=== PATIENT | male | born 2000 | race Caucasian/White ===

== ENCOUNTER 2021-11-06 04:08 | Emergency (ER) | payer MEDICAID, SELFPAY ==
[2021-11-06 04:13] VITALS: BP 131/97; PULSE 86; RESP 12; TEMP 35.9; O2SAT 98; BMI 25.4
[2021-11-06 04:19] VITALS: O2SAT 96
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
[2021-11-06] MEDS: 0.9% Normal Saline 1,000 ML 999 ML IV (04:39)
[2021-11-06 04:45] LABS: Absolute Neutrophil Count 7.6 X10^3/uL (2.0-7.7); Basophil# 0.05 X10^3/uL; Basophil% 0.4 % (0-1); Eosinophil# 0.09 X10^3/uL; Eosinophils% 0.7 % (0-5); Hematocrit 46.3 % (40-54); Hemoglobin 16.1 g/dL (13.0-16.5); Lymphocyte % 26.2 % (19-41); Mean Corp Hgb Conc 34.8 g/dL (32-36); Mean Corpuscular Hgb 29.7 pg (27.0-32.0); Mean Corpuscular Volume 85.3 fL (80-94); Mean Platelet Vol. 9.4 fl (6.2-12.0); Monocyte# 1.24 X10^3/uL; Monocyte% 10.1 % (0-10); NRBC Flagged by Analyzer 0 % (0-5); Neutrophil # 7.61 X10^3/uL (2.7-7.7); Neutrophil % 62.3 % (47-70); Platelet Count 314 K/mm3 (150-450); RBC Distribution Width CV 12.2 % (11.6-14.6); RBC Distribution Width SD 37.5 fl (35.1-43.9); Red Blood Count 5.43 M/mm3 (4.6-6.2); White Blood Count 12.2 K/mm3 (4.4-11.0)
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
[2021-11-06 04:51] LABS: Bacteria 0 SEEN /hpf (None Seen); Color, Urine Yellow (Yellow); Glucose, Dipstick Normal (Normal); Ketone-Dipstick 5 mg/dl (Negative); Leukocyte Esterase-Dipstick Negative /ul (Negative); Mucous, Urine 0 SEEN /hpf (<or=2+); Nitrite-Dipstick Negative (Negative); Occult Blood-Urine 25 /ul (Negative); Protein-Dipstick 30 mg/dl (Negative); Red Blood Cells-Urine 0 SEEN /hpf (0-5); Specific Gravity, Urine 1.015 (1.002-1.030); Squamous Epithelial Cells - UA 0 SEEN /hpf (0-5); Urine Bilirubin Dipstick Negative (Negative); Urine Clarity Clear (Clear); Urine Urobilinogen Normal (Normal); White Blood Cells 0 SEEN /hpf (0-5)
[2021-11-06 05:08] LABS: ALB/GLOB Ratio 1.3 RATIO (0.9-2.4); AST(SGOT) 79 U/L (15-37); Alanine Aminotransfer ALT/SGPT 54 U/L (16-61); Albumin, Serum 4.5 g/dL (3.2-5.0); Alkaline Phosphatase 141 U/L (45-117); Anion Gap 11 (5-15); BUN 12 mg/dL (7-18); BUN/Creat Ratio 11.5 RATIO (10-20); Calcium,Total 8.2 mg/dL (8.5-10.1); Chloride 108 mmol/L (98-107); Creatinine, Serum 1.04 mg/dL (0.70-1.30); EST Glomerular Filtration Rate 95 mL/min (>60); Est Glom Filt Rate - Afr Amer 115 mL/min (>60); Estimated Creatinine Clearance 115.04 ml/min; Globulin 3.5 g/dL (2.2-4.2); Glucose 91 mg/dL (74-106); Potassium 3.8 mmol/L (3.5-5.1); Sodium Level 142 mmol/L (136-145)
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
[2021-11-06 05:18] LABS: Amphetamine Urine VISTA NEGATIVE (<1000 ng/mL); Barbiturate Urine VISTA NEGATIVE (< 200 ng/mL); Benzodiazepine Urine VISTA NEGATIVE (< 200 ng/mL); Cocaine Urine VISTA NEGATIVE (< 300 ng/mL); Ecstacy Urine VISTA NEGATIVE (< 500 ng/mL); Methadone Urine VISTA NEGATIVE (< 300 ng/mL); PCP Urine VISTA NEGATIVE (< 25 ng/mL); THC Urine VISTA NEGATIVE (< 50 ng/mL); Vista UDS pH Range 4
[2021-11-06 05:58] VITALS: BP 103/57; PULSE 67; RESP 12; O2SAT 98
[2021-11-06 07:00] VITALS: O2SAT 96
[2021-11-06 09:53] VITALS: BP 95/49; PULSE 91; RESP 16; O2SAT 95
[2021-11-06 11:22] VITALS: BP 98/43; PULSE 78; RESP 14
== END 2021-11-06 11:47 | disposition home or self-care (01) ==
PROVIDERS: Emergency Provider Emergency Medicine; Visit Provider Emergency Medicine
DX: S02.2XXA Fracture of nasal bones, initial encounter for closed fracture (principal); F10.129 Alcohol abuse with intoxication, unspecified; Y90.8 Blood alcohol level of 240 mg/100 ml or more; S16.1XXA Strain of muscle, fascia and tendon at neck level, initial encounter; L02.413 Cutaneous abscess of right upper limb; S00.431A Contusion of right ear, initial encounter; Y92.481 Parking lot as the place of occurrence of the external cause; L03.113 Cellulitis of right upper limb; F17.210 Nicotine dependence, cigarettes, uncomplicated
CPT/HCPCS: 10060; 70450; 70486; 71260; 72125; 73130; 74177; 80053; 80307; 81001; 82077; 85025; 96360; 96361; 99282; J7030; Q9967; A4216

== ENCOUNTER 2021-12-04 17:07 | Emergency (ER) | payer MEDICAID, SELFPAY ==
[2021-12-04 17:08] VITALS: BP 117/71; PULSE 115; RESP 16; TEMP 36.6; O2SAT 100; BMI 28.8
--- NOTE | 2021-12-04 17:21 | RAD_ITS ---
STUDY: X-RAY - LEFT HAND REASON FOR EXAM: Male, 21 years old. pain TECHNIQUE: 3 view(s) of the hand. COMPARISON: None. FINDINGS: Normal radiocarpal articulation. Normal distal radioulnar joint. Normal visualized carpal bones. Normal carpal articulations Normal carpometacarpal articulation of the thumb. Normal second through fifth carpometacarpal joints. Normal metacarpi. Normal metacarpophalangeal joint of the thumb. Normal interphalangeal joint of the thumb. Normal proximal and distal phalanges of the thumb. Normal metacarpophalangeal joints of the second through fifth fingers. Normal proximal and distal interphalangeal joints of the second through fifth fingers. Normal phalanges of the second through fifth fingers. The soft tissue structures are unremarkable. RAD/Hand Min 3 Views IMPRESSION: Normal x-ray examination of the hand. Electronically Signed: Sam Wade MD at 18:43 EDT ,
--- NOTE | 2021-12-04 17:21 | RAD_ITS ---
STUDY: X-RAY - LEFT WRIST REASON FOR EXAM: Male, 21 years old. pain TECHNIQUE: 3 view(s) of the wrist were obtained. COMPARISON: None. FINDINGS: Normal visualized distal radius and ulna. Normal radiocarpal articulation. Normal distal radioulnar articulation. Normal carpal bones. Normal carpal articulations. Normal carpometacarpal articulation of the thumb. Normal second through fifth carpometacarpal articulations. Normal visualized metacarpal bones. The soft tissue structures are unremarkable. RAD/Wrist min 3 Views IMPRESSION: Normal x-ray examination of the wrist. Electronically Signed: Sam Wade MD at 18:44 EDT ,
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
[2021-12-04] MEDS: Ibuprofen 400 MG Tablet 800 MG PO (17:33)
--- NOTE | 2021-12-04 18:06 | ED.RN ---
Patient in hallway asking how much longer it will take for xray results. Rn stated we are just waiting for the radiologist to read xray. Patient statesI can't wait here all night for my result. Can you just email or text me the result? Dr. Hayes asked patient to wait in room for results and stated we don't do that here. You will have to contact medical records for your results from today. Pt upset and asking for ED exit.
--- NOTE | 2021-12-04 18:07 | ED.RN ---
PT ELOPED PRIOR TO RE EVAL OR DC. PT JUST STATED HE WAS LEAVING. PT AMBULATED FROM ED WITH NO DISTRESS AND A STEADY GAIT
== END 2021-12-04 18:09 | disposition left against medical advice (07) ==
PROVIDERS: Emergency Provider Emergency Medicine; Visit Provider Emergency Medicine
DX: S63.92XA Sprain of unspecified part of left wrist and hand, initial encounter (principal); S60.222A Contusion of left hand, initial encounter; W22.09XA Striking against other stationary object, initial encounter; Z79.1 Long term (current) use of non-steroidal anti-inflammatories (NSAID); F17.210 Nicotine dependence, cigarettes, uncomplicated
CPT/HCPCS: 73110; 73130; 99281; 99283

== ENCOUNTER 2021-12-23 00:12 | Emergency (ER) | payer MEDICAID, SELFPAY ==
[2021-12-23 00:14] VITALS: BP 126/62; PULSE 107; RESP 18; TEMP 36.6; O2SAT 97; BMI 26.2
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
--- NOTE | 2021-12-23 00:26 | EX.ED.UPPERE ---
HPI History of Present Illness Chief Complaint: Laceration Detail of Chief Complaint: Lacerations to left upper extremity Informant: patient Narrative Narrative: Patient presents to the emergency department with lacerations to his left upper extremity. Patient states that he was trying to knock on the window to his home because he did not have the anderson and his hand went through the window. Patient is left-hand dominant. Last tetanus shot was a few weeks ago. PFSH PFSH Medical History Anxiety Depression Smoker Home Medications cephalexin 500 mg PO Q6 #40 capsule 12/23/21 [Rx Last Taken Unknown] Allergy/AdvReac Type Severity Reaction Status Date / Time No Known Allergies Allergy Verified 12/04/21 17:09 Social History Smoking Status: Current every day smoker tobacco type: cigarettes ROS ROS ED Constitutional Constitutional ED: Reports systems reviewed and no addt'l complaints, except as documented; Denies body ache(s), change in weight or chills Eyes Eyes: Denies acute decrease in peripheral vision, change in vision, double vision or loss of vision ENT ENT ED: Reports none; Denies ear pain, lip swelling, loss taste/smell, neck pain, otalgia or sore throat Cardiovascular Cardiovascular: Reports none; Denies abdominal pain, chest pain with activity, leg edema, lightheadedness, palpitations, rapid heart rate or syncope Respiratory/Chest Respiratory/Chest: Reports none; Denies change in mental status, dry cough, dyspnea, hemoptysis, shortness of breath at rest or shortness of breath with exertion Gastrointestinal Gastrointestinal: Reports none; Denies abdominal pain, change in stool character, diarrhea, hematemesis, hematochezia, melena, rectal bleeding or vomiting Genitourinary Genitourinary ED: Reports none; Denies abdominal discomfort, anuria, dysuria, genital pain or polyuria Musculoskeletal Musculoskeletal: Reports none and other Details: Left hand and forearm lacerations ; Denies arthralgias, back pain, difficulty walking, extremity pain, muscle weakness or myalgias Integumentary Reports none; Denies abscess or rash Neurologic Neurologic: Reports none; Denies abnormal gait, confusion, focal weakness, frequent falls, headache(s), loss of vision, numbness, paresthesias, radicular pain, vertigo or weakness Psychiatric Psychiatric: Reports systems reviewed and no addt'l complaints, except as documented and none; Denies behavioral changes, confusion, difficulty concentrating, hallucinations, suicidal ideation, tactile hallucinations or visual hallucinations Endocrine Endocrinology: Denies none, cold intolerance, excessive sweating, fatigue or heat intolerance Hematologic/Lymphatic Hematologic/Lymphatic: Reports none; Denies anemia, easy bleeding or easy bruising Allergic/Immunologic Allergic/Immunologic ED: Denies as per HPI, none, lip swelling, mouth swelling, throat swelling, tongue swelling or hives EXAM Physical Exam Const Vital Signs: 12/23/21 00:14 Temperature 97.9 F Temperature Source Temporal Pulse Rate 107 H Respiratory Rate 18 Blood Pressure 126/62 H Blood Pressure Mean 83 Pulse Ox 97 Oxygen Delivery Method Room Air Positive well nourished and well developed General Appearance ED: well developed and NAD HEENT Reports TM's clear and moist mucous membranes normocephalic and atraumatic; Negative for trauma or tenderness Tympanic Membrane ED: Yes TM's clear Eyes PERRL and EOMs intact bilaterally General Eye ED: Negative for pale conjunctiva or scleral icterus Neck no lymphadenopathy, supple and no JVD General: Negative for tenderness Chest Wall inspection of chest normal and palpation of chest normal Chest: Negative for tenderness Resp normal respiratory effort and clear to auscultation bilaterally Effort and Inspection: Negative for respiratory distress or pain with movement Auscultation: Negative for rhonchi, wheezes or diminished lung sounds Cardio regular rate, regular rhythm, S1 normal heart sound, S2 normal heart sound and no murmurs Peripheral Pulses: pulses 2+ throughout GI normal to inspection, nondistended, normoactive bowel sounds, soft to palpation, non-tender, non-distended and no masses Back/Spine no CVA tenderness and no thoracic nor lumbar tenderness Extremity Extremity Narrative: Evaluation of the left upper extremity reveals a 2 cm laceration over the distal volar radial forearm with no significant active bleeding. No foreign bodies noted within the wound. Patient also has a 2 cm laceration at the base of the palm over the hypothenar eminence again no active bleeding noted. Patient has normal radial and ulnar pulses. Normal cap refill distally. Has normal range of motion of all digits. Neurovascular intact. General Extremety ED: Negative for edema General Extremity: Negative for edema Neuro oriented x3, CN's II-XII intact bilaterally, no sensory deficits noted and gait normal Sensorium / Orientation: awake, alert, oriented to person, oriented to place and oriented to time Motor Exam: strength 5/5 throughout and strength abnormal Psych mental status grossly normal Skin no rashes or lesions noted and no wounds MDM MDM MDM Narrative Medical decision making narrative: I was unable to remove the foreign body despite spending significant time probing and trying to feel the foreign body. I discussed case with orthopedic surgeon on-call Dr. Bond who would be happy to see the patient in follow-up and he to was able to look at the patient's x-rays. Patient will started on Keflex. He will be given a prescription for Keflex. He will be given work restrictions and referral to orthopedics for follow-up. Radiography Diagnostic Testing: Three-view x-rays of the left wrist obtained interpreted by myself as no acute fractures. Patient was noted to have a suspected foreign body in the volar palmar region over the hypothenar eminence overlying the hamate bone near the base of the fourth metacarpal. Official report from radiology pending. Procedures Lacerations Forearm and palmar lacerations: Length: 1.57 in Depth: Sub Q Shape: Linear Prep: Sterile Conditions Laceration repair: Irrigated, Lidocaine and Local Irrigated (ml): 50 Number of Sutures/[place]: 3 Suture Information: Ethilon and 5-0 Comment: I attempted to remove the suspected foreign body/glass from the palmar laceration however I was unsuccessful. 1 single interrupted suture placed in the palmar laceration after he was irrigated and cleansed with Shur-Clens. The forearm laceration had 2 single erupted sutures placed. Clean dressings were applied. Discharge Plan Triage Chief Complaint: Laceration ED Provider: Rodri Mendez Dx/Rx/DC Orders Clinical Impression: Laceration of forearm, left, Laceration of hand, left, Foreign body (FB) in soft tissue Instructions: ED Foreign Body Soft Tissue, ED Laceration: All Closures, ED Laceration, Hand: All Closures Prescriptions: New cephalexin [cephalexin] 500 MG capsule 500 mg PO Q6 Qty: 40 RF: 0 Primary Care Provider: Care Physician,No Primary Referrals: Carter Bond DO [STAFF PHYSICIAN] - 3-5 Days Care Physician,No Primary [Primary Care Provider] - Disposition Disposition: Home, Self Care
[2021-12-23] MEDS: Lidocaine 1% (20 ml mdv) 20 ML Vial 6 ML INFILT (00:27)
[2021-12-23] MEDS: Cephalexin 250 MG Capsule 500 MG PO (01:13)
[2021-12-23 01:16] VITALS: BP 118/75; PULSE 100; RESP 16; O2SAT 98
== END 2021-12-23 01:22 | disposition home or self-care (01) ==
PROVIDERS: Emergency Provider Emergency Medicine; Visit Provider Emergency Medicine
DX: S61.422A Laceration with foreign body of left hand, initial encounter (principal); S51.822A Laceration with foreign body of left forearm, initial encounter; S61.512A Laceration without foreign body of left wrist, initial encounter; W25.XXXA Contact with sharp glass, initial encounter; Y92.009 Unspecified place in unspecified non-institutional (private) residence as the place of occurrence of the external cause; F32.A Depression, unspecified; F41.9 Anxiety disorder, unspecified; F17.210 Nicotine dependence, cigarettes, uncomplicated
CPT/HCPCS: 12002; 73110; 99283; 99284

== ENCOUNTER 2021-12-23 08:55 | Emergency (ER) | payer MEDICAID, SELFPAY ==
[2021-12-23 08:55] VITALS: BP 135/87; PULSE 94; RESP 14; TEMP 36.9; O2SAT 96; BMI 26.5
--- NOTE | 2021-12-23 09:34 | EDS_ITS ---
HPI <YENNIFER Arroyo - Last Filed: 12/23/21 09:44> History of Present Illness Chief Complaint: Laceration Narrative Narrative: 21-year-old male with history of bipolar, anxiety, drug abuse, presents to the emergency department for ongoing left wrist pain after an injury that occurred last evening. Patient has a 2.5 cm laceration to the volar aspect of the left wrist. Patient did receive stitches to a small laceration to the left forearm, 1 suture to the left wrist, there is a foreign body of glass which was a positive on the x-ray. Patient has no ligamental damage. Negative for tendon damage. Patient states that it is hurting, he is here for evaluation. Denies any fevers chills, denies any decreased range of motion. PFSH <YENNIFER Arroyo - Last Filed: 12/23/21 09:44> [facility] Medical History Anxiety Depression Smoker Home Medications cephalexin 500 mg PO Q6 #40 capsule 12/23/21 [Rx Last Taken Unknown] Allergy/AdvReac Type Severity Reaction Status Date / Time No Known Allergies Allergy Verified 12/23/21 08:59 Social History Smoking Status: Current every day smoker tobacco type: cigarettes ROS <YENNIFER Arroyo - Last Filed: 12/23/21 09:44> ROS ED ROS Narrative Constitutional: Negative for fever, chills, weight loss, weakness Eyes: Negative for vision loss, vision change, double vision ENT: Negative for any sore throat, ear pain, congestion Cardiovascular: Negative for any chest pain, tightness, palpitations Respiratory: Negative for any cough, sputum production, hemoptysis, dyspnea, dyspnea on exertion, orthopnea Gastrointestinal: Negative for any abdominal pain, nausea, vomiting, diarrhea, constipation, blood in stool, blood in vomit : Negative for any urinary frequency, dysuria, retention, blood in urine Muscle skeletal: Negative for any muscle joint pain, stiffness, myalgias, arthralgias, neck pain, back pain Neurological: Negative for any headache, syncope, numbness or tingling, dizziness Skin: Negative for any rashes, lumps, itching, abrasions. Positive for laceration to the left wrist, foreign body sensation Psychiatric: Negative for any depression, anxiety, stress, suicidal ideation, homicidal ideation Hematologic: Negative for any easy bruising, excessive bruising, easy bleeding Allergies: Negative for any eczema, hives, rash EXAM <YENNIFER Arroyo - Last Filed: 12/23/21 09:44> Physical Exam Narrative Exam Narrative: Vital signs reviewed. Patient appears anxious, patient appears intoxicated, acting erratic HEET: Head normocephalic atraumatic, TMs clear bilaterally. Posterior pharynx is clear, moist mucous membranes. Nares clear bilaterally. Neck: Supple with no lymphadenopathy or tenderness. No signs of meningismus, negative jolt sign. Cardiac: Regular rate and rhythm no murmurs gallops or rubs, equal peripheral pulses bilaterally. Respiratory: Lungs clear to auscultation bilaterally. No chest tenderness. Abdomen: Soft, nontender, nondistended. No abdominal bruit or pulsatile masses. No hepatosplenomegaly Extremities: No peripheral edema, no signs of gross trauma or deformity. Active full range of motion of all extremities. Patient has +2 radial pulse. Patient is able to open and close his hand, negative for any neuro or focal logical deficit. Patient does have a 1 cm laceration to his forearm which is closed with 2 sutures. Patient does have a 2.5 cm laceration which appears superficial to the volar aspect of the left wrist on the ulnar aspect. This does have 1 suture, it is open, there is no active bleeding. I cannot personally feel a foreign body however according to the x-ray there is a foreign body in the sutures. Neuro: Cranial nerves II through XII intact, no focal neurological deficits. Skin: Clean dry and intact with no rash, purpura, petechiae, vesicles or pustules. Backs/flank: No CVA tenderness, no midline spinal tenderness, no deformity. Psych: Normal mood and affect. No SI, HI or acute psychosis. Const Vital Signs: 12/23/21 08:55 Temperature 98.4 F Temperature Source Temporal Pulse Rate 94 Respiratory Rate 14 Blood Pressure 135/87 H Blood Pressure Mean 103 Pulse Ox 96 Oxygen Delivery Method Room Air <Dr. Bobby Sharp DO - Last Filed: 12/23/21 10:11> Physical Exam Const Vital Signs: 12/23/21 08:55 Temperature 98.4 F Temperature Source Temporal Pulse Rate 94 Respiratory Rate 14 Blood Pressure 135/87 H Blood Pressure Mean 103 Pulse Ox 96 Oxygen Delivery Method Room Air MDM <YENNIFER Arroyo - Last Filed: 12/23/21 09:44> [facility] Narrative Medical decision making narrative: Patient appears to be in no distress, patient appears intoxicated. Patient appears disheveled. The patient states that he is having worsening pain, and he wants the glass out right now. I had a long conversation with the patient regarding the risks of opening this wound, and digging around for glass. He has an appointment this upcoming Sunday with Dr. Bond orthopedic who knows about this patient and will get the foreign body out on that day. However due to the patient's persistence, anxiety, I did contact Dr. Bond, he assured me that there is nothing to do today, that he will see the patient Sunday to have this piece of glass removed. Patient is able to move his hand with full range of motion. He changes moods quickly going from laughing to crying, to anxiety. At this time, patient will have this wound cleansed, irrigated, he will also receive a bacitracin dressing as well as a Velcro wrist splint to decrease any discomfort. He will continue the Keflex. I made him aware that I did speak with Dr. Bond who will see him Sunday as scheduled. Patient states he does not have a car however Dr. Bond is local and is able to walk there, patient is stable for discharge. <Dr. Bobby Sharp, DO - Last Filed: 12/23/21 10:11> [facility] Narrative Medical decision making narrative: This patient was seen with a PA/AIRCRAFT STRUCTURAL FITTER Individually assessed they patient including history and physical. I have reviewed everything on the chart that is available and agree with the documentation provided by the PA/AIRCRAFT STRUCTURAL FITTER including discussion about the assessment, treatment plan, discussion, and return precautions. Patient presenting for reevaluation of his wound stating that it is more painful. He does appear to be intoxicated on alcohol. He is alert and awake and oriented. He is not in any distress. Patient had a previous attempted foreign body removal which was unsuccessful and he was supposed to follow-up Dr. Bond. I had the nurse practitioner speak with Dr. Bond who agreed to continue with the same follow- up. Patient will be put in a wrist splint for comfort. His wound was cleaned and dressed prior. He is to continue his antibiotics. Discharge Plan Triage Chief Complaint: Laceration ED Midlevel Provider: Harshil Diaz ED Provider: Bobby Sharp Dx/Rx/DC Orders Clinical Impression: Laceration of forearm, left, Foreign body (FB) in soft tissue Instructions: ED Foreign Body Soft Tissue, ED Laceration Small or ... Prescriptions: No Action cephalexin [cephalexin] 500 MG capsule 500 mg PO Q6 Qty: 40 RF: 0 Primary Care Provider: Care Physician,No Primary Referrals: Carter Bond DO [STAFF PHYSICIAN] - 2 Days for wound check Care Physician,No Primary [Primary Care Provider] - Activity Restrictions/Additional Instructions: You were going to call the orthopedics office Dr. Bond, you will get a time that he will see you on Sunday. You will walk to his building and see him to have the foreign body removed from your left hand. You will continue to take your antibiotics. You will use the wrist splint to decrease any movement of your left hand. Print Language: [place] Disposition Disposition: Home, Self Care Discharge Date/Time: 12/23/21 09:55
== END 2021-12-23 09:55 | disposition home or self-care (01) ==
PROVIDERS: Emergency Provider Student in an Organized Health Care Education/Training Program; Visit Provider Student in an Organized Health Care Education/Training Program
DX: S51.822A Laceration with foreign body of left forearm, initial encounter (principal); S61.512A Laceration without foreign body of left wrist, initial encounter; W25.XXXA Contact with sharp glass, initial encounter; F31.9 Bipolar disorder, unspecified; F41.9 Anxiety disorder, unspecified; F17.210 Nicotine dependence, cigarettes, uncomplicated
CPT/HCPCS: 99283

== ENCOUNTER 2022-01-21 23:38 | Emergency (ER) | payer MEDICAID, SELFPAY ==
[2022-01-21 23:39] VITALS: BP 130/91; PULSE 89; RESP 16; TEMP 36.6; O2SAT 99; BMI 27.3
--- NOTE | 2022-01-22 00:06 | RAD_ITS ---
STUDY: X-RAY CHEST REASON FOR EXAM: Male, 21 years old. chest pain TECHNIQUE: AP portable. 1:02 AM. COMPARISON: None. FINDINGS: LUNGS: No consolidation. No pneumothorax. MEDIASTINUM: Unremarkable. CARDIAC SILHOUETTE: Not enlarged. BONES AND SOFT TISSUES: No acute abnormalities. RAD/Chest 1 View (Portable) IMPRESSION: Normal chest x-ray. Electronically Signed: Solange Marcano MD at 1:24 EDT ,
--- NOTE | 2022-01-22 00:06 | CT_ITS ---
STUDY: CT BRAIN WITHOUT CONTRAST REASON FOR EXAM: Male, 21 years old. mental status chg, headache, syncope RADIATION DOSAGE (If Supplied By Facility): CTDIvol = ( 44.99 ) mGy, DLP = ( 815.79 ) mGycm TECHNIQUE: Transaxial CT imaging of the brain was performed without administration of intravenous contrast material. Individualized dose optimization techniques were used for this CT. COMPARISON: CT head 11/06/2021. FINDINGS: BRAIN: No acute bleed. No edema. Alvarado-white matter differentiation is maintained. VENTRICLES AND SULCI: Not dilated. EXTRA-AXIAL: No hemorrhage, fluid collection, or mass. CALVARIUM / SKULL BASE: Unremarkable. FACE/SINUSES: Unremarkable. SOFT TISSUES: Unremarkable. CT/Brain/Head without Contrast IMPRESSION: Unremarkable unenhanced CT scan of the brain. Electronically Signed: Solange Marcano MD at 1:27 EDT ,
--- NOTE | 2022-01-22 00:06 | EKG12_ITS ---
Test Reason : DYSRHYTHMIA Blood Pressure : / mmHG Vent. Rate : 069 BPM Atrial Rate : 069 BPM P-R Int : 166 ms QRS Dur : 086 ms QT Int : 374 ms P-R-T Axes : 016 066 040 degrees QTc Int : 400 ms Normal sinus rhythm Normal ECG Confirmed by BELLA REESE, LIZABETH ([id number]), commissioning editor JAMIE MARTINS ([id number]) on 01/24/2022 10:01:48 AM Referred By: NERISSA Confirmed By:LIZABETH BLANCO MD
--- NOTE | 2022-01-22 00:07 | EX.ED.DYSGE1 ---
HPI History of Present Illness Chief Complaint: Syncope Informant: patient and friend Onset/Context/Timing Onset: Today Narrative Narrative: Patient passed out twice today separately. He does not remember a lot of the details so his significant other helps to provide them. They were camping although not all day, most of that he was inside and drinking plenty of fluids, he was in the [place], he rumor feeling lightheaded and then waking up to family and friends while he was on the ground. He does not think he hurt himself but he did wake up with a bad headache bilaterally, globally. That has been better now. They got in the car and went home, and then he fell getting out of the car and fainted again. He does not remember if he had any prodromal symptoms from that. He does remember having chest discomfort and felt like heartburn lower retrosternal about 45 minutes prior to passing out the first time. He states he feels fine now except for mild headache and mild nausea. He denies any dyspnea. No leg pain or swelling recently. No history of DVT or PE. Significant other states that he is not remembering some things right now which is very unusual for him. She states he also has severe anxiety. PFSH [facility] Medical History Anxiety Depression Smoker Home Medications tramadol 50 mg tablet 50 tab PO PRN PRN Pain 01/21/22 [History Last Taken Unknown] Allergy/AdvReac Type Severity Reaction Status Date / Time No Known Allergies Allergy Verified 01/21/22 23:42 Surgical History H/O hand surgery Social History Smoking Status: Current every day smoker tobacco type: cigarettes and smokeless tobacco ROS ROS ED Constitutional Constitutional ED: Denies chills or fever(s) Eyes Eyes: Reports blurry vision bilateral; Denies diplopia ENT ENT ED: Denies rhinorrhea or sore throat Cardiovascular Cardiovascular: Reports as per HPI and chest pain; Denies leg edema, palpitations or racing heartbeat Respiratory/Chest Respiratory/Chest: Denies cough or dyspnea Gastrointestinal Gastrointestinal: Reports nausea; Denies abdominal pain, diarrhea or vomiting Genitourinary Genitourinary ED: Denies dysuria or hematuria Musculoskeletal Musculoskeletal: Denies back pain or neck pain Integumentary Denies abscess or rash Neurologic Neurologic: Reports headache(s); Denies paresthesias or weakness Psychiatric Psychiatric: Denies anxiety or suicidal thoughts EXAM Physical Exam Const Vital Signs: 01/21/22 23:39 01/21/22 23:49 01/22/22 01:04 Temperature 97.8 F Temperature Source Temporal Pulse Rate 89 Respiratory Rate 16 Respiratory Effort Normal Non-Labored Respiratory Pattern Normal Blood Pressure 130/91 H Blood Pressure [Lying] 143/81 H Blood Pressure [Sitting (for 1 minute prior to obtaining)] 121/80 H Blood Pressure [Standing (for 1 minute prior to obtaining)] 118/80 Blood Pressure Mean 104 Blood Pressure Mean [Lying] 101 Blood Pressure Mean [Sitting (for 1 minute prior to obtaining)] 93 Blood Pressure Mean [Standing (for 1 minute prior to obtaining)] 92 Pulse Ox 99 Oxygen Delivery Method Room Air 01/22/22 01:39 Temperature Temperature Source Pulse Rate 73 Respiratory Rate 16 Respiratory Effort Respiratory Pattern Blood Pressure 118/80 Blood Pressure [Lying] Blood Pressure [Sitting (for 1 minute prior to obtaining)] Blood Pressure [Standing (for 1 minute prior to obtaining)] Blood Pressure Mean 92 Blood Pressure Mean [Lying] Blood Pressure Mean [Sitting (for 1 minute prior to obtaining)] Blood Pressure Mean [Standing (for 1 minute prior to obtaining)] Pulse Ox 96 Oxygen Delivery Method Room Air Positive well nourished and well developed General Appearance ED: well developed and NAD HEENT Reports moist mucous membranes normocephalic and atraumatic Eyes PERRL and EOMs intact bilaterally Neck full ROM and supple Resp normal respiratory effort and clear to auscultation bilaterally Cardio regular rate, regular rhythm and no murmurs GI non-tender and non-distended Auscultation: normoactive bowel sounds Palpation: soft Back/Spine no CVA tenderness General Back: other FROM Extremity normal to inspection General Extremety ED: Negative for edema, pulses abnormal or tenderness General Extremity: Negative for edema or pulses abnormal Neuro CN's II-XII intact bilaterally and no sensory deficits noted Neuro Narrative: Not oriented to place but redirectable Sensorium / Orientation: awake, alert and orientation impaired Motor Exam: strength 5/5 throughout Psych mental status grossly normal Skin no rashes or lesions noted and no wounds MDM MDM MDM Narrative Medical decision making narrative: Orthostatics are negative, CT of the head is negative for subarachnoid hemorrhage or other acute abnormality, his chest x-ray and EKG and troponin and the rest of his labs are all negative. In addition, he meets PERC criteria with a score of 0 to rule out PE without further testing indicated. Differential here includes vasovagal phenomena, orthostasis that he no longer has, anxiety, he is at low risk for transient dysrhythmia and he had no symptoms to suggest this was the case, just lightheadedness. He was outdoors when both of these episodes happened so I am not concerned about carbon monoxide necessarily, and he is feeling better now. Supportive care & follow-up, return as needed. Does not have a PCP so he was referred to the next doctor on the unassigned list. Lab Data Attestation: I reviewed the patient's lab results. Labs: Laboratory Results - last 24 hr 01/22/22 01/22/22 00:37 00:37 WBC 6.0 RBC 5.28 Hgb 15.4 Hct 44.9 MCV 85.0 MCH 29.2 MCHC 34.3 RDW Std Deviation 36.2 RDW Coeff of Tre 11.8 Plt Count 276 MPV 9.7 Immature Gran % (Auto) 0.500 Neut % (Auto) 46.0 L Lymph % (Auto) 41.5 H Taney % (Auto) 5.5 Eos % (Auto) 6.0 H Baso % (Auto) 0.5 Absolute Neuts (auto) 2.8 Absolute Lymphs (auto) 2.50 Nucleated RBC % 0 Sodium 142 Potassium 3.8 Chloride 111 H Carbon Dioxide 23.0 Anion Gap 8 BUN 10 Creatinine 0.89 Estim Creat Clear Calc 125.96 Est GFR (MDRD) Af Amer 138 Est GFR (MDRD) Non-Af 114 BUN/Creatinine Ratio 11.3 Glucose 101 Calcium 8.6 Troponin I High Sens < 3 L Radiography Chest X-Ray - ED: 1 View, Read by ED Physician, Normal, No Acute Disease and No Infiltrates Diagnostic Testing: Clinical Impression(s) from Imaging Studies Brain CT 01/22/22 00:06 IMPRESSION: Unremarkable unenhanced CT scan of the brain. Electronically Signed: Solange Marcano MD at 1:27 EDT , Chest X-Ray 01/22/22 00:06 IMPRESSION: Normal chest x-ray. Electronically Signed: Solange Marcano MD at 1:24 EDT , Rhythm Strip Rhythm Strip: Sinus Rhythm Rate: 70 Ectopy: None EKG Initial EKG: Attestation: I personally reviewed and interpreted this EKG as follows: Interpretation: Sinus Rhythm and No Acute Injury Pattern Comments: normal EKG Discharge Plan Triage Chief Complaint: Syncope ED Provider: Antelmo Jasso Dx/Rx/DC Orders Clinical Impression: Syncope, Intermittent lightheadedness Instructions: Causes of Syncope Prescriptions: No Action tramadol 50 mg tablet 50 tab PO PRN PRN (Reason: Pain) Primary Care Provider: Care Physician,No Primary Referrals: Shanta Vernon MD [STAFF PHYSICIAN] - Care Physician,No Primary [Primary Care Provider] - Disposition Disposition: Home, Self Care
[2022-01-22] MEDS: 0.9% Normal Saline 1,000 ML 999 ML IV (00:32)
[2022-01-22] MEDS: Ketorolac 15 MG/ML Vial IV (00:33)
[2022-01-22] MEDS: Ondansetron 4 MG/2 ML Vial IV (00:33)
[2022-01-22 00:51] LABS: Absolute Neutrophil Count 2.8 X10^3/uL (2.0-7.7); Basophil# 0.03 X10^3/uL; Basophil% 0.5 % (0-1); Eosinophil# 0.36 X10^3/uL; Hematocrit 44.9 % (40-54); Hemoglobin 15.4 g/dL (13.0-16.5); Lymphocyte % 41.5 % (19-41); Mean Corp Hgb Conc 34.3 g/dL (32-36); Mean Corpuscular Hgb 29.2 pg (27.0-32.0); Mean Platelet Vol. 9.7 fl (6.2-12.0); Monocyte# 0.33 X10^3/uL; Monocyte% 5.5 % (0-10); NRBC Flagged by Analyzer 0 % (0-5); Neutrophil # 2.78 X10^3/uL (2.7-7.7); Platelet Count 276 K/mm3 (150-450); RBC Distribution Width CV 11.8 % (11.6-14.6); RBC Distribution Width SD 36.2 fl (35.1-43.9); Red Blood Count 5.28 M/mm3 (4.6-6.2)
[2022-01-22 01:04] VITALS: BP 118/80; BP 121/80; BP 143/81
[2022-01-22 01:13] LABS: Anion Gap 8 (5-15); BUN 10 mg/dL (7-18); BUN/Creat Ratio 11.3 RATIO (10-20); Calcium,Total 8.6 mg/dL (8.5-10.1); Chloride 111 mmol/L (98-107); Creatinine, Serum 0.89 mg/dL (0.70-1.30); EST Glomerular Filtration Rate 114 mL/min (>60); Est Glom Filt Rate - Afr Amer 138 mL/min (>60); Estimated Creatinine Clearance 125.96 ml/min; Glucose 101 mg/dL (74-106); Potassium 3.8 mmol/L (3.5-5.1); Sodium Level 142 mmol/L (136-145); Troponin-I HS < 3 pg/mL (3.0-78.0)
[2022-01-22 01:39] VITALS: BP 118/80; PULSE 73; RESP 16; O2SAT 96
[2022-01-22 03:32] VITALS: BP 103/51; PULSE 86; RESP 16; O2SAT 98
== END 2022-01-22 03:33 | disposition home or self-care (01) ==
PROVIDERS: Emergency Provider Emergency Medicine; Visit Provider Emergency Medicine
DX: R55 Syncope and collapse (principal); R51.9 Headache, unspecified; F17.210 Nicotine dependence, cigarettes, uncomplicated
CPT/HCPCS: 70450; 71045; 80048; 84484; 85025; 93005; 96361; 96374; 96375; 99285; J7030; A4216; J2405

== ENCOUNTER 2022-02-02 20:40 | Emergency (ER) | payer MEDICAID, SELFPAY ==
--- NOTE | 2022-02-02 08:30 | EKG12_ITS ---
Test Reason : cp Blood Pressure : / mmHG Vent. Rate : 118 BPM Atrial Rate : 118 BPM P-R Int : 154 ms QRS Dur : 088 ms QT Int : 306 ms P-R-T Axes : 071 092 059 degrees QTc Int : 428 ms Sinus tachycardia Rightward axis Borderline ECG Confirmed by ONEYDA SANCHEZ MD ([id number]), communications editor ROBERTA JACQUES ([id number]) on 02/07/2022 11:13:42 AM Referred By: Danish Confirmed By:ONEYDA SANCHEZ MD
[2022-02-02 20:40] VITALS: BP 125/84; PULSE 122; RESP 20; TEMP 37.2; O2SAT 97; BMI 26.0
--- NOTE | 2022-02-02 20:48 | ED.RN ---
Patient states he is going to leave. RN asks if patient will leave when RN walks out of room. Pt states yes. IV removed and gauze with tape placed over where IV was removed.
--- NOTE | 2022-02-02 20:58 | ED.RN ---
Upon entering room patient asked this RN if he could leave. This RN advised patient that it is recommended that he stay and let the doctor exam him and run some tests to find out why he is having pain. Patient had just removed IV and continued to remove heart monitor lead stickers. Patient ambulatory to exit before being seen by a doctor.
--- NOTE | 2022-02-02 21:09 | ED.VIS.CHEST ---
HPI History of Present Illness Chief Complaint: Chest Pain Narrative Narrative: 19-year-old male complaining of chest pain. He had been here about 15 minutes. I went back to evaluate him. He left without being seen. PFSH PFSH Medical History Anxiety Depression Smoker Allergy/AdvReac Type Severity Reaction Status Date / Time No Known Allergies Allergy Verified 02/02/22 20:45 Surgical History H/O hand surgery Social History Smoking Status: Current every day smoker tobacco type: cigarettes and smokeless tobacco EXAM Physical Exam Const Vital Signs: 02/02/22 20:40 Temperature 98.9 F Temperature Source Temporal Pulse Rate 122 H Respiratory Rate 20 H Blood Pressure 125/84 H Blood Pressure Mean 97 Pulse Ox 97 Oxygen Delivery Method Room Air MDM MDM MDM Narrative Medical decision making narrative: 21-year-old with chest pain. Left without being seen. Rhythm Strip Rhythm Strip: Sinus Tach Rate: 118 Ectopy: None EKG Initial EKG: Interpretation: Sinus Rhythm, No Acute Injury Pattern and Sinus Tachycardia Comments: Sinus tachycardia rate of 118. No acute signs of MA or ischemia. Discharge Plan Triage Chief Complaint: Chest Pain ED Provider: Provider,Ed Physician Dx/Rx/DC Orders Clinical Impression: Chest pain, Patient left without being seen Primary Care Provider: Care Physician,No Primary Referrals: Care Physician,No Primary [Primary Care Provider] - Disposition Disposition: LEFT WITHOUT BEING SEEN Discharge Date/Time: 02/02/22 20:58
== END 2022-02-02 20:58 | disposition left against medical advice (07) ==
LOC: ED 21:02
DX: R07.9 Chest pain, unspecified (principal); F17.210 Nicotine dependence, cigarettes, uncomplicated; Z53.21 Procedure and treatment not carried out due to patient leaving prior to being seen by health care provider
CPT/HCPCS: 93005; 99284

== ENCOUNTER 2022-02-16 20:45 | Emergency (ER) | payer MEDICAID, SELFPAY ==
[2022-02-16 20:46] VITALS: BP 132/87; PULSE 93; RESP 18; TEMP 36.4; O2SAT 96; BMI 25.4
--- NOTE | 2022-02-16 21:04 | EDS_ITS ---
HPI HPI - Psych History of Present Illness Chief Complaint: Mental Health Narrative Narrative: History and physical is limited secondary to patient being evasive in answering questions. He states he brought himself in here. He denies any suicidal ideation or homicidal ideation, but initially said that he was hearing voices then denied it. He will not clearly state why he brought himself to the emergency department. It was reported by triage that he is having a manic episode. PFSH PFSH Medical History Anxiety Depression Smoker Home Medications NK 02/16/22 [History Last Taken Unknown] Allergy/AdvReac Type Severity Reaction Status Date / Time No Known Allergies Allergy Verified 02/16/22 20:49 Surgical History H/O hand surgery Social History Smoking Status: Current every day smoker tobacco type: cigarettes and smokeless tobacco ROS ROS ED ROS Narrative Review of systems limited secondary to patient evasiveness/psychiatric disorder. Constitutional: No fever, no chills. HEENT: No sore throat. No neck pain. No loss of vision. No rhinorrhea. Cardiovascular: No chest pain. No palpitations. No pedal edema. Respiratory: No cough, no shortness of breath. Abdominal: No abdominal pain. No nausea. No vomiting. Genitourinary: No dysuria. No hematuria. Musculoskeletal: No myalgias. No arthralgias. Neurologic: No headaches. No dizziness. No lightheadedness. Skin: No rash. No change in color. Psychiatric: Positive depression. Positive anxiety. EXAM Physical Exam Narrative Exam Narrative: Afebrile. Vital signs noted. HEENT: Normocephalic. Atraumatic. PERRL, EOMI. Neck soft and supple. No point tenderness or step off. Cardiovascular: Regular rate and rhythm. No murmurs, rubs, or gallops appreciated. Respiratory: No tachypnea. Lungs clear to auscultation bilaterally. Gastrointestinal: Abdomen soft, nontender, with normoactive bowel sounds. No re bound or guarding. Neurological: Awake. Alert. Nonfocal, nonlateralizing. Skin: No rash. Normal color. No pallor. Musculoskeletal: No pedal edema. Full range of motion extremities. Psychiatric: Poor eye contact. Labile affect. Becoming hostile. Const Vital Signs: 02/16/22 20:46 Temperature 97.6 F L Temperature Source Temporal Pulse Rate 93 Respiratory Rate 18 Blood Pressure 132/87 H Blood Pressure Mean 102 Pulse Ox 96 Oxygen Delivery Method Room Air MDM MDM MDM Narrative Medical decision making narrative: Medical screening labs were obtained. CBC is grossly normal except for hemoglobin slightly elevated at 16.6, hematocrit 45.9. Platelet count normal at 310. His urine drug screen is negative. Electrolyte panel noted to have chloride of 111. Of significance his ethyl alcohol level is elevated at 410. I do feel that given his depression and invasiveness that he may require psychiatric evaluation as it was reported that he was manic. However, given his acute alcohol intoxication, I did review his prior visits and back in October, he was found with a decreased level of consciousness and had a blood alcohol level above 300. At this point in time, he will be signed out to the overnight physician who can reevaluate him when he is more sober, versus signing him out to the morning physician tomorrow for psychiatric evaluation should he have continued problems with depression. Currently, patient is in stable condition. Lab Data Attestation: I reviewed the patient's lab results. Labs: Laboratory Results - last 24 hr 02/16/22 02/16/22 02/16/22 21:40 21:40 21:40 WBC 8.1 RBC 5.67 Hgb 16.6 H Hct 45.9 MCV 81.0 MCH 29.3 MCHC 36.2 H RDW Std Deviation 33.7 L RDW Coeff of Tre 11.6 Plt Count 310 MPV 10.2 Immature Gran % (Auto) 0.500 Neut % (Auto) 58.0 Lymph % (Auto) 34.8 Waldo % (Auto) 3.8 Eos % (Auto) 2.3 Baso % (Auto) 0.6 Absolute Neuts (auto) 4.7 Absolute Lymphs (auto) 2.83 Nucleated RBC % 0 Sodium Potassium Chloride Carbon Dioxide Anion Gap BUN Creatinine Estim Creat Clear Calc Est GFR (MDRD) Af Amer Est GFR (MDRD) Non-Af BUN/Creatinine Ratio Glucose Calcium Total Bilirubin AST ALT Alkaline Phosphatase Total Protein Albumin Globulin Albumin/Globulin Ratio Urine Opiates Screen NEGATIVE Urine Methadone Screen NEGATIVE Ur Barbiturates Screen NEGATIVE Ur Phencyclidine Scrn NEGATIVE Ur Amphetamines Screen NEGATIVE MDMA (Ecstasy) Screen NEGATIVE U Benzodiazepines Scrn NEGATIVE Urine Cocaine Screen NEGATIVE U Cannabinoids Screen NEGATIVE Ur Drug Screen Comment Ethyl Alcohol 410.0 H* 02/16/22 21:40 WBC RBC Hgb Hct MCV MCH MCHC RDW Std Deviation RDW Coeff of Tre Plt Count MPV Immature Gran % (Auto) Neut % (Auto) Lymph % (Auto) Waldo % (Auto) Eos % (Auto) Baso % (Auto) Absolute Neuts (auto) Absolute Lymphs (auto) Nucleated RBC % Sodium 142 Potassium 3.9 Chloride 111 H Carbon Dioxide 23.0 Anion Gap 8 BUN 9 Creatinine 0.98 Estim Creat Clear Calc 118.23 Est GFR (MDRD) Af Amer 123 Est GFR (MDRD) Non-Af 101 BUN/Creatinine Ratio 9.2 L Glucose 113 H Calcium 8.6 Total Bilirubin 0.30 AST 29 ALT 33 Alkaline Phosphatase 122 H Total Protein 7.9 Albumin 4.3 Globulin 3.6 Albumin/Globulin Ratio 1.2 Urine Opiates Screen Urine Methadone Screen Ur Barbiturates Screen Ur Phencyclidine Scrn Ur Amphetamines Screen MDMA (Ecstasy) Screen U Benzodiazepines Scrn Urine Cocaine Screen U Cannabinoids Screen Ur Drug Screen Comment Ethyl Alcohol Discharge Plan Triage Chief Complaint: Mental Health ED Provider: Mao Hayes Dx/Rx/DC Orders Clinical Impression: Depression, Acute alcohol intoxication Prescriptions: No Action NK Primary Care Provider: Care Physician,No Primary Referrals: Care Physician,No Primary [Primary Care Provider] -
[2022-02-16 21:46] VITALS: RESP 18
[2022-02-16 21:56] LABS: Absolute Lymphocyte Count 2.83 X10^3/uL (0.83-4.51); Absolute Neutrophil Count 4.7 X10^3/uL (2.0-7.7); Basophil# 0.05 X10^3/uL; Basophil% 0.6 % (0-1); Eosinophil# 0.19 X10^3/uL; Eosinophils% 2.3 % (0-5); Hematocrit 45.9 % (40-54); Hemoglobin 16.6 g/dL (13.0-16.5); Lymphocyte # 2.83 X10^3/ul (0.83-4.51); Lymphocyte % 34.8 % (19-41); Mean Corp Hgb Conc 36.2 g/dL (32-36); Mean Corpuscular Hgb 29.3 pg (27.0-32.0); Mean Platelet Vol. 10.2 fl (6.2-12.0); Monocyte# 0.31 X10^3/uL; Monocyte% 3.8 % (0-10); NRBC Flagged by Analyzer 0 % (0-5); Neutrophil # 4.71 X10^3/uL (2.7-7.7); Platelet Count 310 K/mm3 (150-450); RBC Distribution Width CV 11.6 % (11.6-14.6); RBC Distribution Width SD 33.7 fl (35.1-43.9); Red Blood Count 5.67 M/mm3 (4.6-6.2); White Blood Count 8.1 K/mm3 (4.4-11.0)
[2022-02-16 22:17] LABS: ALB/GLOB Ratio 1.2 RATIO (0.9-2.4); AST(SGOT) 29 U/L (15-37); Alanine Aminotransfer ALT/SGPT 33 U/L (16-61); Albumin, Serum 4.3 g/dL (3.2-5.0); Alkaline Phosphatase 122 U/L (45-117); Anion Gap 8 (5-15); BUN 9 mg/dL (7-18); BUN/Creat Ratio 9.2 RATIO (10-20); Calcium,Total 8.6 mg/dL (8.5-10.1); Chloride 111 mmol/L (98-107); Creatinine, Serum 0.98 mg/dL (0.70-1.30); EST Glomerular Filtration Rate 101 mL/min (>60); Est Glom Filt Rate - Afr Amer 123 mL/min (>60); Estimated Creatinine Clearance 118.23 ml/min; Globulin 3.6 g/dL (2.2-4.2); Glucose 113 mg/dL (74-106); Potassium 3.9 mmol/L (3.5-5.1); Protein, Total 7.9 g/dL (6.4-8.2); Sodium Level 142 mmol/L (136-145)
[2022-02-16 22:29] LABS: Amphetamine Urine VISTA NEGATIVE (<1000 ng/mL); Barbiturate Urine VISTA NEGATIVE (< 200 ng/mL); Benzodiazepine Urine VISTA NEGATIVE (< 200 ng/mL); Cocaine Urine VISTA NEGATIVE (< 300 ng/mL); Ecstacy Urine VISTA NEGATIVE (< 500 ng/mL); Methadone Urine VISTA NEGATIVE (< 300 ng/mL); PCP Urine VISTA NEGATIVE (< 25 ng/mL); THC Urine VISTA NEGATIVE (< 50 ng/mL); Vista UDS pH Range 6
[2022-02-16 22:46] VITALS: O2SAT 18
[2022-02-17] VITALS (7 sets, daily range): BP systolic 112–120; BP diastolic 60–62; PULSE 87–89; RESP 16–18; O2SAT 96–99
== END 2022-02-17 07:15 | disposition home or self-care (01) ==
PROVIDERS: Emergency Provider Emergency Medicine; Visit Provider Emergency Medicine
DX: F32.A Depression, unspecified (principal); F10.129 Alcohol abuse with intoxication, unspecified; F30.9 Manic episode, unspecified; Y90.8 Blood alcohol level of 240 mg/100 ml or more; H69.91 Unspecified Eustachian tube disorder, right ear; F41.9 Anxiety disorder, unspecified; F17.210 Nicotine dependence, cigarettes, uncomplicated
CPT/HCPCS: 80053; 80307; 82077; 85025; 87811; 99285

== ENCOUNTER 2022-02-18 08:40 | Emergency (ER) | payer MEDICAID, SELFPAY ==
[2022-02-18 08:41] VITALS: BP 131/85; PULSE 95; RESP 16; TEMP 36.6; O2SAT 100; BMI 27.3
--- NOTE | 2022-02-18 08:51 | ED.RN ---
PT DOES STATES GIRLFRIEND WAS POSITIVE FOR COVID. PT STATES TOOK A COVID TEST AND WAS NEGATIVE
--- NOTE | 2022-02-18 09:03 | EX.ED.VIS.UR ---
HPI HPI - URI History of Present Illness Chief Complaint: Ear Problem Informant: patient Onset/Context/Timing Onset: Yesterday Context: Gradual Onset Timing: Continuous Quality: Popping Location: Right ear Worsened by: - (Nothing) Relieved by: - (Nothing) Associated Symptoms Associated Symptoms: Positive for Sinus Pressure, Diarrhea and Shortness of Breath; Negative for Nasal Congestion, Headache, Myalgias, Nausea, Vomiting, Chest Pain, Nonproductive cough, Hemoptysis or Productive Cough Narrative Narrative: Patient presents with right ear pain that has been getting worse since yesterday. Patient was discharged from here yesterday morning after being observed for alcohol intoxication. Patient had his ear evaluated prior to discharge yesterday and it was noted to be retracted at that time. Patient was given a prescription for prednisone. Patient states he has taken that. Patient states the pain is getting worse today. Patient feels a popping sensation in his right ear. Patient also admits to some sinus pressure. Patient also admits to some diarrhea and shortness of breath. Patient denies any fevers or chills. Patient states nothing makes his symptoms better nothing makes them worse. ROS ROS ED Constitutional Constitutional ED: Denies chills or fever(s) Eyes Eyes: Denies blurry vision or change in vision ENT ENT ED: Reports ear pain right; Denies rhinorrhea or sore throat Cardiovascular Cardiovascular: Denies chest pain or palpitations Respiratory/Chest Respiratory/Chest: Reports dyspnea; Denies cough Gastrointestinal Gastrointestinal: Reports diarrhea; Denies nausea or vomiting Genitourinary Genitourinary ED: Denies dysuria or hematuria Musculoskeletal Musculoskeletal: Denies back pain or neck pain Integumentary Reports rash; Denies abscess Neurologic Neurologic: Denies headache(s) or weakness Allergic/Immunologic Allergic/Immunologic ED: Denies mouth swelling or urticaria PFSH PFSH Medical History Anxiety Depression Smoker Home Medications azelastine 137 mcg (0.1 %) nasal spray aerosol 2 spray intranasal BID #30 mL 02/17/22 [Rx Last Taken Unknown] prednisone 20 mg tablet 40 mg PO DAILY 5 days #10 tabs 02/17/22 [Rx Last Taken Unknown] wiromxlx-cmrspgivr-xdvlbkinr 3.5 mg/mL-10,000 unit/mL-1 % ear solution 4 drp RIGHT EAR Q8H 7 days #10 mL 02/18/22 [Rx Last Taken Unknown] Allergy/AdvReac Type Severity Reaction Status Date / Time No Known Allergies Allergy Verified 02/18/22 08:58 Surgical History H/O hand surgery Social History Smoking Status: Current every day smoker tobacco type: cigarettes and smokeless tobacco EXAM Physical Exam Const Vital Signs: 02/18/22 08:41 Temperature 98 F Temperature Source Temporal Pulse Rate 95 Respiratory Rate 16 Blood Pressure 131/85 H Blood Pressure Mean 100 Pulse Ox 100 Oxygen Delivery Method Room Air Positive well nourished and well developed General Appearance ED: well developed and NAD HEENT Reports moist mucous membranes HEENT Narrative: The right external auditory canal shows some edema and erythema. There is some drainage noted in the ear canal. The tympanic membrane is retracted but is not erythematous. The left external auditory canal and tympanic membrane are clear. normocephalic Throat: posterior oropharynx normal Eyes PERRL and EOMs intact bilaterally Neck no lymphadenopathy, supple, no meningeal signs and no JVD Resp normal respiratory effort and clear to auscultation bilaterally Cardio Rate: regular rate Rhythm: regular rhythm Neuro oriented x3, CN's II-XII intact bilaterally and no sensory deficits noted Sensorium / Orientation: alert Motor Exam: strength 5/5 throughout Psych mental status grossly normal Skin Skin Narrative: There is an urticarial rash noted over the medial aspect of the right upper arm. There are no vesicles or pustules. There is no petechia. There is no involvement of the palms or soles. There is no involvement of mucous membranes. MDM MDM MDM Narrative Medical decision making narrative: Patient was instructed to continue his prednisone. Patient was advised that this will still help with his ear pain as well as the rash on his right upper arm. Patient was given a prescription for Cortisporin otic suspension. Patient was instructed to follow-up with a primary care physician in 5 to 7 days. Patient was instructed to continue Tylenol or ibuprofen as needed for pain. Patient understood and was agreeable with the plan. All questions were answered. Discharge Plan Triage Chief Complaint: Ear Problem ED Provider: Samir Loya Dx/Rx/DC Orders Clinical Impression: Acute otitis externa of right ear, Urticaria Instructions: ED Hives (Adult), ED External Ear Infection (Adult) Prescriptions: New ghyvjhjr-kdszmmcqp-XJ 3.5-10,000-1 mg/mL-unit/mL-% solution 4 drp RIGHT EAR Q8H 7 Days Qty: 10 0RF No Action prednisone 20 mg tablet 40 mg PO DAILY 5 Days Qty: 10 0RF azelastine 137 mcg (0.1 %) aerosol,spray 2 spray intranasal BID Qty: 30 0RF Rx Instructions: administer into each nostril Primary Care Provider: Care Physician,No Primary Referrals: Nevaeh Jesus [NON-STAFF] - 3-5 Days Care Physician,No Primary [Primary Care Provider] - Disposition Disposition: Home, Self Care
== END 2022-02-18 09:19 | disposition home or self-care (01) ==
PROVIDERS: Emergency Provider Emergency Medicine; Visit Provider Emergency Medicine
DX: H60.91 Unspecified otitis externa, right ear (principal); L50.9 Urticaria, unspecified; R19.7 Diarrhea, unspecified; R06.02 Shortness of breath; Z79.52 Long term (current) use of systemic steroids; F17.210 Nicotine dependence, cigarettes, uncomplicated
CPT/HCPCS: 99282

== ENCOUNTER 2022-02-18 11:20 | Emergency (ER) | payer MEDICAID, SELFPAY ==
[2022-02-18 11:22] VITALS: BP 122/88; PULSE 74; RESP 18; TEMP 36.3; O2SAT 97; BMI 27.0
--- NOTE | 2022-02-18 11:28 | EDS_ITS ---
HPI HPI - URI History of Present Illness Chief Complaint: Ear Problem Informant: patient Onset/Context/Timing Onset: Yesterday Context: Gradual Onset Timing: Continuous Quality: Sharp and popping Location: Right ear Associated Symptoms Associated Symptoms: Negative for Nasal Congestion, Headache, Sinus Pressure, Myalgias, Nausea, Vomiting, Diarrhea, Shortness of Breath, Chest Pain, Nonproductive cough, Hemoptysis or Productive Cough Narrative Narrative: Patient presents with right ear pain that became worse again today. Patient was seen here earlier today and was diagnosed with right otitis externa. Patient states that after he left here he pulled out a maggot out of his right ear. Patient states he went to [facility] urgent care where they noted some worms in his right ear. Patient states they were unable to irrigate at there and referred him back to the emergency department. Patient denies any hearing changes. Patient denies any fevers or chills. ROS ROS ED Constitutional Constitutional ED: Denies chills or fever(s) Eyes Eyes: Denies blurry vision or change in vision ENT ENT ED: Reports ear pain right; Denies rhinorrhea or sore throat Cardiovascular Cardiovascular: Denies chest pain or palpitations Respiratory/Chest Respiratory/Chest: Denies cough or dyspnea Gastrointestinal Gastrointestinal: Reports diarrhea; Denies nausea or vomiting Genitourinary Genitourinary ED: Denies dysuria or hematuria Musculoskeletal Musculoskeletal: Reports back pain; Denies neck pain Integumentary Reports rash; Denies abscess Neurologic Neurologic: Denies headache(s) or weakness Allergic/Immunologic Allergic/Immunologic ED: Denies mouth swelling or urticaria PFSH PFSH Medical History Anxiety Depression Smoker Home Medications azelastine 137 mcg (0.1 %) nasal spray aerosol 2 spray intranasal BID #30 mL 02/17/22 [Rx Last Taken Unknown] prednisone 20 mg tablet 40 mg PO DAILY 5 days #10 tabs 02/17/22 [Rx Last Taken Unknown] ciprofloxacin HCl 500 mg tablet 500 mg PO BID #14 TABLETS 02/18/22 [Rx Last Taken Unknown] elekgnra-dcjfaagqc-ifdrrmazb 3.5 mg/mL-10,000 unit/mL-1 % ear solution 4 drp RIGHT EAR Q8H 7 days #10 mL 02/18/22 [Rx Last Taken Unknown] Allergy/AdvReac Type Severity Reaction Status Date / Time No Known Allergies Allergy Verified 02/18/22 11:21 Surgical History H/O hand surgery Social History Smoking Status: Current every day smoker tobacco type: cigarettes and smokeless tobacco EXAM Physical Exam Const Vital Signs: 02/18/22 11:22 Temperature 97.3 F L Temperature Source Temporal Pulse Rate 74 Respiratory Rate 18 Blood Pressure 122/88 H Blood Pressure Mean 99 Pulse Ox 97 Oxygen Delivery Method Room Air Positive well nourished and well developed General Appearance ED: well developed and NAD HEENT Reports moist mucous membranes HEENT Narrative: There is edema and erythema of the right external auditory canal. There are worms noted in the external auditory canal. The tympanic membrane is retracted. There is mild erythema. Throat: posterior oropharynx normal Neck no lymphadenopathy General: Negative for anterior neck swelling Neuro oriented x3, CN's II-XII intact bilaterally and no sensory deficits noted Sensorium / Orientation: alert Motor Exam: strength 5/5 throughout Psych mental status grossly normal MDM MDM MDM Narrative Medical decision making narrative: The right ear was irrigated with normal saline. There were multiple small worms removed with irrigation. Patient states the popping sensation has resolved. Patient was instructed to continue the Cortisporin otic drops. Patient was g yovani a prescription for Cipro. Patient was instructed to follow-up with his primary care physician in 5 to 7 days. Patient understood and was agreeable with the plan. All questions were answered. Discharge Plan Triage Chief Complaint: Ear Problem ED Provider: Samir Loya Dx/Rx/DC Orders Clinical Impression: Acute otitis externa of right ear, Acute foreign body of right ear canal Instructions: ED External Ear Infection (Adult) Prescriptions: New ciprofloxacin HCl [ciprofloxacin HCl] 500 mg tablet 500 mg PO BID Qty: 14 0RF No Action prednisone 20 mg tablet 40 mg PO DAILY 5 Days Qty: 10 0RF azelastine 137 mcg (0.1 %) aerosol,spray 2 spray intranasal BID Qty: 30 0RF Rx Instructions: administer into each nostril kmwcraka-iiuqfxamu-HP 3.5-10,000-1 mg/mL-unit/mL-% solution 4 drp RIGHT EAR Q8H 7 Days Qty: 10 0RF Primary Care Provider: Care Physician,Sandy Primary Referrals: Nevaeh Jesus [NON-STAFF] - 3-5 Days Care Physician,No Primary [Primary Care Provider] - Disposition Disposition: Home, Self Care
--- NOTE | 2022-02-18 11:39 | ED.RN ---
flushed ear out with sterile water. around 10 worm/maggots fall out of pts. ear.
== END 2022-02-18 11:51 | disposition home or self-care (01) ==
PROVIDERS: Emergency Provider Emergency Medicine; Visit Provider Emergency Medicine
DX: H60.91 Unspecified otitis externa, right ear (principal); T16.1XXA Foreign body in right ear, initial encounter; R19.7 Diarrhea, unspecified; L50.9 Urticaria, unspecified; R06.02 Shortness of breath; F17.210 Nicotine dependence, cigarettes, uncomplicated
CPT/HCPCS: 99282

== ENCOUNTER 2023-07-19 16:59 | Emergency (ER) | payer MEDICAID, SELFPAY ==
[2023-07-19 16:59] VITALS: BP 117/89; PULSE 138; RESP 18; TEMP 36.4; O2SAT 98; BMI 32.8
--- NOTE | 2023-07-19 18:56 | EX.ED.VIS.UR ---
HPI HPI - URI History of Present Illness Chief Complaint: Cold Sx Informant: patient Narrative Narrative: This morning patient started having severe sore throat, cough, myalgias, feeling malaised. Slept with his daughter last night who has RSV and has recently been hospitalized for dyspnea, she is a child. He is healthy otherwise. ROS ROS ED Constitutional Constitutional ED: Reports body ache(s), chills, fatigue, fever(s) and malaise ENT ENT ED: Reports nasal congestion, rhinorrhea and sore throat Cardiovascular Cardiovascular: Denies chest pain or palpitations Respiratory/Chest Respiratory/Chest: Reports cough; Denies dyspnea Gastrointestinal Gastrointestinal: Denies abdominal pain, diarrhea, nausea or vomiting Genitourinary Genitourinary ED: Denies dysuria or hematuria Musculoskeletal Musculoskeletal: Denies myalgias or neck pain Integumentary Denies abscess or rash Neurologic Neurologic: Reports headache(s); Denies paresthesias or weakness Psychiatric Psychiatric: Denies depression or suicidal thoughts Endocrine Endocrinology: Denies polydipsia or polyuria PFSH PFSH Medical History Anxiety Depression Smoker Home Medications azelastine 137 mcg (0.1 %) nasal spray aerosol 2 spray intranasal BID #30 mL 02/17/22 [Rx Last Taken Unknown] prednisone 20 mg tablet 40 mg (2 x 20 mg) PO DAILY 5 days #10 tabs 02/17/22 [Rx Last Taken Unknown] ciprofloxacin HCl 500 mg tablet 500 mg PO BID #14 TABLETS 02/18/22 [Rx Last Taken Unknown] fxpnfnpr-rjibdlvup-cbzmhyssa 3.5 mg/mL-10,000 unit/mL-1 % ear solution 4 drp RIGHT EAR Q8H 7 days #10 mL 02/18/22 [Rx Last Taken Unknown] amoxicillin 875 mg tablet 875 mg PO Q12H #20 tabs 07/19/23 [Rx Last Taken Unknown] Allergy/AdvReac Type Severity Reaction Status Date / Time No Known Allergies Allergy Verified 07/19/23 16:59 Surgical History H/O hand surgery Social History Smoking Status: Current every day smoker tobacco type: cigarettes and smokeless tobacco EXAM Physical Exam Const Vital Signs: 07/19/23 16:59 Temperature 97.5 F L Temperature Source Temporal Pulse Rate 138 H Respiratory Rate 18 Blood Pressure 117/89 H Blood Pressure Mean 98 Pulse Ox 98 Oxygen Delivery Method Room Air Positive well nourished and well developed General Appearance ED: well developed and NAD HEENT Reports moist mucous membranes HEENT Narrative: Hyperemia and exudates on both tonsils, no asymmetry, edema, or trismus. Tongue and other oral mucosa normal. normocephalic and atraumatic Throat: posterior oropharynx abnormal Positive for erythema and exudates Eyes PERRL and EOMs intact bilaterally Neck supple and no meningeal signs Neck Narrative: Bilateral anterior submandibular lymphadenopathy, no posterior nodes. Neck supple. Resp normal respiratory effort and clear to auscultation bilaterally Cardio no murmurs Rate: regular rate Rhythm: regular rhythm Neuro oriented x3, CN's II-XII intact bilaterally and no sensory deficits noted Sensorium / Orientation: alert Motor Exam: strength 5/5 throughout Skin Lesions: no lesions Rashes: no rashes MDM MDM MDM Narrative Medical decision making narrative: Per protocol nursing placed orders for COVID/influenza/RSV swab which is positive for RSV and negative for the others, as well as a strep which also came back positive. Reassured about the RSV, he is not likely to become significantly ill from this, but given the presence of exudates and 7 Devillier lymphadenopathy will treat his strep is a true positive with amoxicillin. Otherwise supportive care advised. Lab Data Attestation: I reviewed the patient's lab results. Discharge Plan Triage Chief Complaint: Cold Sx ED Provider: Antelmo Jasso Dx/Rx/DC Orders Clinical Impression: RSV bronchitis, Strep throat Instructions: RSV (Respiratory Syncytial Virus), ED Bronchitis, No Antibiotic (Adult), ED Pharyngitis, Strep (Confirmed) Prescriptions: New amoxicillin 875 mg tablet 875 mg PO Q12H Qty: 20 0RF No Action prednisone 20 mg tablet 40 mg PO DAILY 5 Days Qty: 10 0RF azelastine 137 mcg (0.1 %) aerosol,spray 2 spray intranasal BID Qty: 30 0RF Rx Instructions: administer into each nostril uegfixqb-hlepfotvr-ZS 3.5-10,000-1 mg/mL-unit/mL-% solution 4 drp RIGHT EAR Q8H 7 Days Qty: 10 0RF ciprofloxacin HCl [ciprofloxacin HCl] 500 mg tablet 500 mg PO BID Qty: 14 0RF Primary Care Provider: Care Physician,No Primary Referrals: Nevaeh Jesus [Non-Staff] - 10-14 Days if not better Care Physician,No Primary [Primary Care Provider] - Disposition Disposition: Home, Self Care
[2023-07-19] MEDS: AMOXICILLIN 500 MG CAPSULE PO (19:05)
--- OUTSIDE RECORDS SUMMARY | 2023-07-19 19:18 | XMS RPT_ITS | CCD ---
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 Appearance: He is not diaphoretic. HENT: Head: Normocephalic. Jaw: No trismus, tenderness, swelling or pain on movement. Nose: Congestion present. Mouth/Throat: Mouth: Mucous membranes are moist. Pharynx: Oropharynx is clear. Uvula midline. No pharyngeal swelling, oropharyngeal exudate, posterior oropharyngeal erythema or uvula swelling. Eyes: Conjunctiva/sclera: Conjunctivae normal. Pupils: Pupils are equal, round, and reactive to light. Cardiovascular: Rate and Rhythm: Normal rate and regular rhythm. Heart sounds: Normal heart sounds. Pulmonary: Effort: Pulmonary effort is normal. No tachypnea, accessory muscle usage or respiratory distress. Breath sounds: Normal breath sounds. No stridor. No wheezing, rhonchi or rales. Abdominal: General: There is no distension. Palpations: Abdomen is soft. Tenderness: There is no abdominal tenderness. There is no guarding or rebound. Musculoskeletal: Cervical back: Normal range of motion and neck supple. No edema, erythema, rigidity or tenderness. No pain with movement. Normal range of motion. Lymphadenopathy: Cervical: No cervical adenopathy. Skin: General: Skin is warm and dry. Neurological: Mental Status: He is alert and oriented to person, place, and time. ASSESSMENT/PLAN: 1. Viral illness - ICD9: 079.99, ICD10: B34.9 - COVID AND INFLUENZA A/B NAAT, ROUTINE No evidence of acute abdomen. Nontoxic-appearing. Staying hydrated. Hemodynamically stable. Treat as viral illness. Red flags prompt elevation discussed. Patient was educated on supportive therapies. Patient will follow up with primary care provider as needed. Patient was instructed to immediately proceed to emergency room for any new, worsening, or symptoms lasting longer than anticipated. The patient's clinical presentation is otherwise unremarkable at this time. Based on exam (more content not included)... [facility] 02-18-2022 History of Presen t illness Narrative Visit Date: February 18, 2022 Patient Name: Mr.Garrett Jessica Vega Date of : 2000 MRN/E #: [id number] Chief Complaint Patient presents with: Ear Pain: R ear pain, recent dx ear infection, white worm in R ear x1 day Rash: R inner upper arm, leg History of present illness Patrick Vega is a 21 year old male. Presents with pain in his right ear that started 1 day ago. He was seen in the ER 1 day ago and sent home with ear drops for otitis externa. He has not started the drops. This morning he pulled a maggot out of his ear. He feels a scartching sensation in his ear and has mild pain. He went to the ER again this morning and was told his ears look okay and to start the ear drops. Denies having any hearing loss, discharge from the ear, or swelling. He still has not started the ear drops. PAIN EVALUATION No data found in the last 1 encounters. ALLERGIES No Known Allergies PAST MEDICAL HISTORY Diagnosis Date PMH - PAST MEDICAL HISTORY OF 01/31/2005 normal color vision PMH - PAST MEDICAL HISTORY OF age 3 ? right leg frx PAST SURGICAL HISTORY Procedure Laterality Date NONE Social History Tobacco Use Smoking status: Current Some Day Smoker Smokeless tobacco: Never Used Tobacco comment: dad smokes outside Substance Use Topics Alcohol use: No Drug use: No FAMILY HISTORY Problem Relation Age of Onset Cancer Unknown maternal side other (lung cancer [Other]) Paternal Grandfather smoker other (unknown [Other]) Paternal Grandmother Review of Systems Constitutional: Negative for chills, fatigue and fever. HENT: Positive for ear pain (right ear). Negative for congestion, ear discharge and tinnitus. Respiratory: Negative for cough and wheezing. Gastrointestinal: Negative for nausea and vomiting. Neurological: Negative for dizziness and headaches. Physical Exam Vitals and nursing note reviewed. Constitutional: Appearance: Normal appearance. HENT: Right Ear: Swelling and tenderness present. No drainage. A foreign body (4-5 maggots present in ear) is present. Tympanic membrane is erythematous. Left Ear: No drainage, swelling or tenderness. No foreign body. Tympanic membrane is not erythematous. Nose: No congestion or rhinorrhea. Mouth/Throat: Pharynx: No oropharyngeal exudate or posterior oropharyngeal erythema. Pulmonary: Effort: Pulmonary effort is normal. Skin: General: Skin is warm and dry. Neurological: Mental Status: He is alert and oriented to person, place, and time. BP 130/98 Pulse 85 Temp 98.4 Resp 20 Wt 178 lb 12.8 oz (81.1kg) SpO2 98% Assessment/Plan (B87.9) Infestation by maggots (primary encounter diagnosis) - ENT offices closed today, recommend he go to ER for irrigation of the right ear due to maggot infestation - patient to drive himself to [place] ER (H60.503) Acute otitis externa of both ears, unspecified type - see plan above Catarino Black APRN.DEBBIE Discussed above plan with patient. Pt agreeable with above plan. documented in this encounter [facility] 02-13-2022 Miscellaneous Notes wrong phone number. Reyna Carpenter Unable to reach patient. Mailbox full/Mailbox not set up/ Number incorrect. Please try again later. Reyna Carpenter Telephone call to patient, number is mother's number, mother states she has not heard from patient in a few days and she has no way to contact him. Advised her when she hears from him to let him know to return call to CC. COVID negative. RSV and Influenza negative. Continue treatment plan discussed at time of visit. Follow up with PCP. documented in this encounter [facility] 02-10-2022 Instructions Tyrell Tran APRN.CONDITIONING ROOM WORKER - 02/10/2022 10:34 AM EDT Beginning Home Isolation Isolation is used to separate people infected with SARS-CoV-2, the virus that causes COVID-19, from people who are not infected. People who are in isolation should stay home until it s safe for them to be around others. In the home, anyone sick or infected should separate themselves from others by staying in a specific sick room or area and using a separate bathroom (if available). Isolation or Quarantine: What's the difference? Quarantine keeps someone who might have been exposed to the virus away from others. Isolation keeps someone who is infected with the virus away from others, even in their home. Who needs to isolate People who have COVID-19 People who have symptoms of COVID-19 and are able to recover at home People who have no symptoms (are asymptomatic) but have tested positive for infection with SARS-CoV-2 Steps to take Stay home except to get medical care Monitor your symptoms. Stay in a separate room from other household members, if possible Use a separate bathroom, if possible Avoid contact with other members of the household and pets Don t share personal household items, like cups, towels, and utensils Wear a mask when around other people, if you are able to When to seek emergency medical attention Look for emergency warning signs* for COVID-19. If someone is showing any of these signs, seek emergency medical care immediately: Trouble breathing Persistent pain or pressure in the chest New confusion Inability to wake or stay awake Bluish lips or face *This list is not all possible symptoms. Please call your medical provider for any other symptoms that are severe or concerning to you. Call 911 or call ahead to your local emergency facility: Notify the ingot buggy operator that you are seeking care for someone who has or may have COVID-19. Ending Home Isolation - When you can be around others after you had or likely had COVID-19 When you can be around others after you had or likely had COVID-19 If You Test Positive for COVID-19 (Isolation) Everyone, regardless of vaccination status: 1. Stay home for 5 days. Note: Day 0 is your first day of symptoms or the date of collection of a positive viral test if no symptoms. Day 1 is the first full day after symptoms developed or test specimen was collected. 2. If you have no symptoms or your symptoms are resolving after 5 days, you can leave your house. 3. Continue to wear a mask around others for 5 additional days. If you have a fever, continue to stay home until your fever resolves, even if it is longer than 5 days. If You Were Exposed to Someone with COVID-19 (Quarantine) If you: 1. Have been boosted OR 2. Completed the primary series of Pfizer or Moderna vaccine within the last 6 months OR 3. Completed the primary series of J&J vaccine within the last 2 months THEN: 1. Wear a mask around others for 10 days. 2. Test on day 5, if possible. If you develop symptoms get a test and stay home. If You Were Exposed to Someone with COVID-19 (Quarantine) If you: 1. Completed the primary series of Pfizer or Moderna vaccine over 6 months ago and are not boosted OR 2. Completed the primary series of J&J over 2 months ago and are not boosted OR 3. Are unvaccinated THEN: 1. Stay home for 5 days. After that continue to wear a mask around others for 5 additional days. 2. If you can't quarantine you must wear a mask for 10 days. 3. Test on day 5 if possible. If you develop symptoms get a test and stay home. I had COVID-19 or I tested positive for COVID-19 and I have a weakened immune system If you have a weakened immune system (immunocompromised) due to a health condition or medication, you might need to stay home and isolate longer than 10 days. Talk to your healthcare provider for more information. Your doctor may work with an infectious disease expert at your local health department to determine when you can be around others. documented in this encounter [facility] 02-10-2022 History of Presen t illness Narrative This note was created using EasyLink. Subjective Patrick Vega is a 21 year old male. 21 year old male with PMH ADHD presents with complains of illnesss Acute onset today +body aches +headache Sinus pressure +fever +cough Endorses that his girlfriend, who he resides with, tested positive 2 days ago. He utilized Tylneol this morning. think this is COVID The history is provided by the patient. No speech language pathologist assistant was used. Fever This is a new problem. The current episode started 3 to 5 hours ago. The problem occurs constantly. The problem has not changed since onset.The maximum temperature noted was 100 to 100.9 F. Associated symptoms include congestion, headaches, muscle aches and cough. Pertinent negatives include no chest pain, no diarrhea, no vomiting and no sore throat. He has tried acetaminophen for the symptoms. The treatment provided mild relief. PAST MEDICAL HISTORY Diagnosis Date PMH - PAST MEDICAL HISTORY OF 01/31/2005 normal color vision PMH - PAST MEDICAL HISTORY OF age 3 ? right leg frx PAST SURGICAL HISTORY Procedure Laterality Date NONE ALLERGIES Patient has no known allergies. MEDICATIONS lisdexamfetamine (VYVANSE) 30 mg capsule Take 1 capsule by mouth every morning. FAMILY HISTORY Problem Relation Age of Onset Cancer Unknown maternal side other (lung cancer [Other]) Paternal Grandfather smoker other (unknown [Other]) Paternal Grandmother Social History Tobacco Use Smoking status: Current Some Day Smoker Smokeless tobacco: Never Used Tobacco comment: dad smokes outside Substance Use Topics Alcohol use: No Drug use: No Review of Systems Constitutional: Positive for fever. Negative for appetite change, chills and diaphoresis. HENT: Positive for congestion. Negative for sore throat. Respiratory: Positive for cough. Negative for apnea, choking and chest tightness. Cardiovascular: Negative for chest pain, palpitations and leg swelling. Gastrointestinal: Negative for abdominal pain, diarrhea and vomiting. Musculoskeletal: Positive for myalgias. Skin: Negative for color change, pallor, rash and wound. Allergic/Immunologic: Negative for environmental allergies, food allergies and immunocompromised state. Neurological: Positive for headaches. Hematological: Negative for adenopathy. Does not bruise/bleed easily. Psychiatric/Behavioral: Negative for agitation and behavioral problems. Objective BP 128/62 Pulse 104 Temp 37.2 C (98.9 F) Resp 18 Wt 80.8 kg (178 lb 3.2 oz) SpO2 98% Physical Exam Vitals and nursing note reviewed. Constitutional: General: He is not in acute distress. Appearance: Normal appearance. He is not ill-appearing, toxic-appearing or diaphoretic. HENT: Head: Normocephalic and atraumatic. Right Ear: External ear normal. Left Ear: External ear normal. Nose: Nose normal. No congestion or rhinorrhea. Mouth/Throat: Mouth: Mucous membranes are moist. Pharynx: Oropharynx is clear. No oropharyngeal exudate or posterior oropharyngeal erythema. Eyes: General: Right eye: No discharge. Left eye: No discharge. Extraocular Movements: Extraocular movements intact. Conjunctiva/sclera: Conjunctivae normal. Pupils: Pupils are equal, round, and reactive to light. Cardiovascular: Rate and Rhythm: Normal rate and regular rhythm. Pulses: Normal pulses. Heart sounds: Normal heart sounds. No murmur heard. No friction rub. No gallop. Pulmonary: Effort: Pulmonary effort is normal. No respiratory distress. Breath sounds: Normal breath sounds. No stridor. No wheezing, rhonchi or rales. Chest: Chest wall: No tenderness. Abdominal: General: Abdomen is flat. There is no distension. Palpations: Abdomen is soft. There is no mass. Tenderness: There is no abdominal tenderness. There is no guarding or rebound. Hernia: No hernia is present. Musculoskeletal: General: No swelling, tenderness, deformity or signs of injury. Normal range of motion. Cervical back: Normal range of motion and neck supple. No rigidity or tenderness. Right lower leg: No edema. Left lower leg: No edema. Lymphadenopathy: Cervical: No cervical adenopathy. Skin: General: Skin is warm and dry. Capillary Refill: Capillary refill takes less than 2 seconds. Coloration: Skin is not jaundiced or pale. Findings: No bruising, lesion or rash. Neurological: General: No focal deficit present. Mental Status: He is alert and oriented to person, place, and time. Cranial Nerves: No cranial nerve deficit. Sensory: No sensory deficit. Motor: No weakness. Coordination: Coordination normal. Gait: Gait normal. Deep Tendon Reflexes: Reflexes normal. Psychiatric: Mood and Affect: Mood normal. Behavior: Behavior normal. Thought Content: Thought content normal. Assessment and Plan ASSESSMENT/PLAN: 1. Exposure to COVID-19 virus - ICD9: V01.79, ICD10: Z20.822 (primary diagnosis) Girlfriend tested positive 2 days ago He lives with her - COVID WITH FLUA+B, ROUTINE 2. Viral illness - ICD9: 079.99, ICD10: B34.9 - Discussed viral etiology and rationale for treatment. - Symptomatic treatment with prn analgesia - Supportive care with fluids and rest - The patient may also use OTC cough and cold meds as needed, warm salt water gargles, throat lozenges and/or OTC throat spray as needed and nasal saline gtts and suction prn. - Follow up in 3-5 days if symptoms persist or sooner if worsening of symptoms - COVID WITH FLUA+B, ROUTINE Tyrell Tran APRN.CONDITIONING ROOM WORKER documented in this encounter [facility] Infestation by maggots- Primary Myiasis Acute otitis externa of both ears, unspecified type documented in this encounter [facility] Summary Purpose Family History No Family History Records FoundNo Family History Records Found Advance Directives No Advanced Directives Records FoundNo Advanced Directives Records Found Health Concerns Infection Onset Date Last Indicated Resolved Time COVID-19 Rule-Out 02/10/2022 02/10/2022 Additional Source Comments (unrecognized sect ion and content) No Status Records FoundNo Status Records Found INFORMATION SOURCE (unrecogn ized section and content) DATE CREATED AUTHOR AUTHOR'S ORGANMARIMAR ATION 05/13/[address] [facility] Source Comments (unrecognize d section and content) In the event this informatio n is protected by the Federal Confidentiality of Alcohol and Drug Abuse Patient Records regulations: The Federal rules restrict any use of the information to criminally investigate or prosecute any alcohol or drug abuse patient.[facility] event this information is protected by the Federal Confidentiality of Alcohol and Drug Abuse Patient Records regulations: The Federal rules restrict any use of the information to criminally investigate or prosecute any alcohol or drug abuse patient.[facility] the event this information is protected by the Federal Confidentiality of Alcohol and Drug Abuse Patient Records regulations: The Federal rules restrict any use of the information to criminally investigate or prosecute any alcohol or drug abuse patient.[facility] the event this information is protected by the Federal Confidentiality of Alcohol and Drug Abuse Patient Records regulations: The Federal rules restrict any use of the information to criminally investigate or prosecute any alcohol or drug abuse patient.[facility] the event this information is protected by the Federal Confidentiality of Alcohol and Drug Abuse Patient Records regulations: The Federal rules restrict any use of the information to criminally investigate or prosecute any alcohol or drug abuse patient.[facility] Reason for Visit (unrecogniz ed section and content) Specialty Diagnoses / Procedures Referred By Contac t Referred To Contact Internal Medicine / [facility] Diagnoses fever, pain in shoulders that run down body, possibly covid Procedures EST SAME DAY [facility] [address] [place] [address] Referral ID Status Reason Start Date Expiration Date Visits Requested Visits Authorized [id number] Authorized Patient Cleared - Qualified 100% FAS 02/10/2022 05/11/2022 99 99 Reason Comments Results Reason Comments Ear Pain R ear pain, recent d x ear infection, white worm in R ear x1 day Rash R inner upper arm, l eg Care Teams (unrecognized sec tion and content) Business Management Professor Relationship Specialty Start Date End Date Simón Willis MD [address] [place] [address] PCP - General 05/16/02 Business Management Professor Relationship Specialty Start Date End Date Simón Willis MD [address] [place] [address] PCP - General 05/16/02 Business Management Professor Relationship Specialty Start Date End Date Simón Willis MD [address] [place] [id number] (work) PCP - General 05/16/02 FOR RECORDS PERTAINING TO PATIENTS WHO ARE OR HAVE BEEN ENROLLED IN A CHEMICAL DEPENDENCY/SUBSTANCEABUSE PROGRAM, SOME INFORMATION MAY BE OMITTED. This clinical summary was aggregated from multiple sources. Caution should be exercised in using it in the provision of clinical care. This summary normalizes information from multiple sources, and as a consequence, information in this document may materially change the coding, format and clinical context of patient data. In addition, data may be omitted in some cases. CLINICAL DECISIONS SHOULD BE BASED ON THE PRIMARY CLINICAL RECORDS. [facility] [employer] [facility]. provides no warranty or guarantee of the accuracy or completeness of information in this document.
== END 2023-07-19 19:18 | disposition home or self-care (01) ==
LOC: ED 19:14
PROVIDERS: Emergency Provider Emergency Medicine; Referring Provider Emergency Medicine; Visit Provider Emergency Medicine
DX: J20.5 Acute bronchitis due to respiratory syncytial virus (principal); J02.0 Streptococcal pharyngitis; F17.210 Nicotine dependence, cigarettes, uncomplicated; F17.290 Nicotine dependence, other tobacco product, uncomplicated; Z20.828 Contact with and (suspected) exposure to other viral communicable diseases
CPT/HCPCS: 87631; 87880; 99282